=== PATIENT | male | born 1960 | race Caucasian/White ===

== ENCOUNTER → 2021-11-03 | Outpatient (CLI) | payer OTHER | LOC: LAB SHORT 16:34 | DX: R30.0 Dysuria (principal) | CPT/HCPCS: 87086 ==

== ENCOUNTER → 2022-04-01 | Outpatient (CLI) | payer BC, OTHER ==
[~2022-04-01] MED LIST: AMLO5 PO; ASPI81CH PO; ATOR40TA PO; CINNAMON PO; CIPR250 PO; GLIP5 PO; GLUCHON PO; LATA.005SO BOTHEYES; Lisinopril-Hct1 EAC4 PO; MAGNESIUM OXID500 MG PO; MELO7.5 PO; METF500 PO; MULTI-VITAMIN1 EAC2 PO; OMEGA-3 + VITA200 ML PO; Robaxin750 MG PO; TAMS.4ER PO; VITAMIN D310 MC4 PO; Vitamin B Comple1 EA PO; Voltaren100 GM TOP
[2022-04-01 12:53] LABS: BASOPHILS ABSOLUTE AUTO 0.02 K/mm3 (0.00-0.23); BASOPHILS PERCENT AUTO 1 % (0-2); EOSINOPHILS ABSOLUTE AUTO 0.16 K/mm3 (0.00-0.68); EOSINOPHILS PERCENT AUTO 4 % (0-6); Hematocrit 40.1 % (37.0-53.0); Hemoglobin 14.2 g/dL (13.5-17.5); IMMATURE GRAN ABSOLUTE AUTO 0.01 K/mm3 (0.00-0.10); IMMATURE GRAN PERCENT AUTO 0 % (0-1); LYMPHOCYTES ABSOLUTE AUTO 1.36 K/mm3 (0.84-5.20); LYMPHOCYTES PERCENT AUTO 31 % (21-46); MONOCYTES ABSOLUTE AUTO 0.41 K/mm3 (0.16-1.47); MONOCYTES PERCENT AUTO 9 % (4-13); Mean Corpuscular HGB 29.7 pg (26.0-34.0); Mean Corpuscular HGB Conc 35.4 g/dL (31.5-36.5); Mean Corpuscular Volume 84 fL (80-100); Mean Platelet Volume 10.4 fL (9.1-12.4); NEUTROPHILS ABSOLUTE AUTO 2.42 K/mm3 (1.96-9.15); NEUTROPHILS PERCENT AUTO 55 % (41-73); Platelet Count 219 K/mm3 (150-400); RDW Coefficient Variation 12.2 % (11.7-14.2); RDW Standard Deviation 37.2 fL (35.1-46.3); Red Blood Cell Count 4.78 M/mm3 (4.30-5.90); White Blood Cell Count 4.38 K/mm3 (4.00-11.30)
[2022-04-01 13:10] LABS: Alanine Aminotransfer (ALT/SGP 41 U/L (12-78); Albumin, Blood 3.8 g/dL (3.4-5.0); Albumin/Globulin Ratio 1.4 (0.8-1.8); Alk Phos 56 U/L (50-136); Anion Gap 6 mmol/L (6-16); Aspartate Aminotrans (AST/SGOT 18 U/L (12-37); Bilirubin, Total 0.4 mg/dL (0.1-1.0); Blood Urea Nitrogen 20 mg/dL (8-24); CO2, Blood 31 mmol/L (21-32); Calcium, Blood 9.5 mg/dL (8.5-10.1); Chloride, Blood 105 mmol/L (98-108); Creatinine, Blood 0.87 mg/dL (0.60-1.20); Globulin, Blood 2.8 g/dL (2.2-4.0); Glomerular Filtration Rate 97 (60-); Glucose, Blood 117 mg/dL (70-99); Magnesium, Blood 2.2 mg/dL (1.6-2.4); Potassium, Blood 3.4 mmol/L (3.5-5.5); Sodium, Blood 142 mmol/L (136-145); Total Protein, Blood 6.6 g/dL (6.4-8.2)
== END | disposition home or self-care (01) ==
LOC: LAB SHORT 12:15 → LAB 12:15
PROVIDERS: Nurse Practitioner Family
DX: R30.0 Dysuria (principal); R10.9 Unspecified abdominal pain; N34.1 Nonspecific urethritis
CPT/HCPCS: 80053; 83735; 84153; 85025; 87070; 87077; 87186; 87205; 87252; 87254

== ENCOUNTER → 2022-08-08 | Outpatient (CLI) | payer BC, OTHER ==
[2022-08-08 09:46] LABS: BASOPHILS ABSOLUTE AUTO 0.03 K/mm3 (0.00-0.23); BASOPHILS PERCENT AUTO 1 % (0-2); EOSINOPHILS ABSOLUTE AUTO 0.19 K/mm3 (0.00-0.68); EOSINOPHILS PERCENT AUTO 4 % (0-6); Hematocrit 40.2 % (37.0-53.0); Hemoglobin 13.7 g/dL (13.5-17.5); IMMATURE GRAN ABSOLUTE AUTO 0.01 K/mm3 (0.00-0.10); IMMATURE GRAN PERCENT AUTO 0 % (0-1); LYMPHOCYTES ABSOLUTE AUTO 1.07 K/mm3 (0.84-5.20); LYMPHOCYTES PERCENT AUTO 22 % (21-46); MONOCYTES ABSOLUTE AUTO 0.42 K/mm3 (0.16-1.47); MONOCYTES PERCENT AUTO 9 % (4-13); Mean Corpuscular HGB 29.2 pg (26.0-34.0); Mean Corpuscular HGB Conc 34.1 g/dL (31.5-36.5); Mean Corpuscular Volume 86 fL (80-100); Mean Platelet Volume 10.4 fL (9.1-12.4); NEUTROPHILS ABSOLUTE AUTO 3.06 K/mm3 (1.96-9.15); NEUTROPHILS PERCENT AUTO 64 % (41-73); Platelet Count 233 K/mm3 (150-400); RDW Coefficient Variation 13.5 % (11.7-14.2); RDW Standard Deviation 41.8 fL (35.1-46.3); Red Blood Cell Count 4.69 M/mm3 (4.30-5.90); White Blood Cell Count 4.78 K/mm3 (4.00-11.30)
[2022-08-08 10:06] LABS: Magnesium, Blood 2.1 mg/dL (1.6-2.4); Uric Acid, Blood 5.9 mg/dL (3.5-7.2)
[2022-08-08 10:07] LABS: Alanine Aminotransfer (ALT/SGP 27 U/L (12-78); Albumin, Blood 3.4 g/dL (3.4-5.0); Alk Phos 69 U/L (50-136); Anion Gap 5 mmol/L (6-16); Aspartate Aminotrans (AST/SGOT 14 U/L (12-37); Bilirubin, Total 0.3 mg/dL (0.1-1.0); Blood Urea Nitrogen 16 mg/dL (8-24); Bun/Creatinine Ratio 20.6 (12.0-20.0); CHOL/HDL RATIO 2.6; CO2, Blood 31 mmol/L (21-32); Calcium, Blood 8.8 mg/dL (8.5-10.1); Chloride, Blood 103 mmol/L (98-108); Cholesterol 140 mg/dL (50-200); Creatinine, Blood 0.78 mg/dL (0.60-1.20); Globulin, Blood 3.3 g/dL (2.2-4.0); Glomerular Filtration Rate 100 (60-); Glucose, Blood 159 mg/dL (70-99); HDL Cholesterol 54 mg/dL (>39); LDL/HDL RATIO 1.4; Low Density Lipoprotein Chol 73 mg/dL (0-110); Potassium, Blood 3.4 mmol/L (3.5-5.5); Sodium, Blood 139 mmol/L (136-145); Total Protein, Blood 6.7 g/dL (6.4-8.2); Triglycerides 63 mg/dL (30-160); Very Low Density Lipoprot Chol 12 mg/dL (6-32)
[2022-08-11 13:10] LABS: FREE TESTOSTERONE(DIRECT) 6.7 pg/mL (6.6-18.1); TESTOSTERONE, SERUM 339 ng/dL (264-916)
== END | disposition home or self-care (01) ==
LOC: LAB 08:45 → LAB SHORT 08:45
PROVIDERS: Nurse Practitioner Family
DX: Z00.00 Encounter for general adult medical examination without abnormal findings (principal); E78.5 Hyperlipidemia, unspecified; M1A.09X0 Idiopathic chronic gout, multiple sites, without tophus (tophi); E83.42 Hypomagnesemia; E11.9 Type 2 diabetes mellitus without complications
CPT/HCPCS: 80053; 80061; 82043; 83036; 83735; 84402; 84403; 84550; 85025

== ENCOUNTER → 2022-10-09 | Outpatient (CLI) | payer BC, OTHER ==
[~2022-10-09] MED LIST changes: +ZINC15 PO
== END ==
LOC: LAB SHORT 07:40
DX: E11.9 Type 2 diabetes mellitus without complications (principal)
CPT/HCPCS: 83036

== ENCOUNTER 2022-11-03 07:58 | Day surgery (SDC) | payer BC, OTHER ==
[2022-11-03] VITALS (13 sets, daily range): BP systolic 103–186; BP diastolic 55–162
[~2022-11-03] VITALS: Ht 171 cm; Wt 102.7 kg
--- NOTE | 2022-11-03 09:34 | NUR ---
Ambulatory in Day Surgery History, Chart, Medications and Allergies reviewed before start of procedure. Pre-Op teaching done. Pt verbalizes understanding.
--- NOTE | 2022-11-03 11:49 | NUR ---
PT GLASSES TAKEN TO PACU
--- NOTE | 2022-11-03 14:55 | NUR ---
ARRIVAL TO UNIT PT TRANSFERRED TO UNIT FROM PACU VIA HOSPITAL BED. S/P R TKA, POD 0. AOX4. REPORTS NO PAIN AT THIS TIME, PLAN IS TO MEDICATE PER EMAR. RECOVERING FROM SPINAL ANESTHESIA, UNABLE TO WIGGLE TOES, REPORTS NUMBNESS & TINGLING. PPP, CAP REFILL BRISK. TOLERATING PO INTAKE. AQUACEL DRESSING C/D/I W/ RAMAKRISHNA WRAP. COOLING DEVICE IN PLACE. BLADDER SCAN & STRAIGHT CATH PROCEDURE PERFORMED IN PACU, WILL CONTINUE TO MONITOR FOR POST-CATH VOID RECOVERY PROGRESSES. IVF ORDERED. @ BEDSIDE.
--- NOTE | 2022-11-03 17:27 | NUR ---
SHIFT SUMMARY S/P R TKA, POD 0. VSS, RM AIR. TOLERATING PO INTAKE. PAIN TOLERABLE W/ ORDERED MEDICATIONS. BLADDER SCAN & STRAIGHT CATH PERFORMED IN PACU, AWAITING POST-CATH VOID. AQUACEL DRESSING C/D/I W/ RAMAKRISHNA WRAP. PT EVAL COMPLETED, UP W/ SBA FWW GB. CURRENTLY SITTING IN CHAIR. @ BEDSIDE. WILL REPORT TO ONCOMING RN.
--- NOTE | 2022-11-03 18:12 | NUR ---
UPDATE AFTER ATTEMPTING TO VOID POST-OP, PT UNABLE TO DO SO. BLADDER SCAN & STRAIGHT CATH PERFORMED (SEE BLADDER MANAGEMENT CHARTING FOR [facility]).
[2022-11-04 00:25] VITALS: BP 136/80
[2022-11-04 04:32] LABS: BASOPHILS ABSOLUTE AUTO 0.01 K/mm3 (0.00-0.23); BASOPHILS PERCENT AUTO 0 % (0-2); EOSINOPHILS ABSOLUTE AUTO 0.04 K/mm3 (0.00-0.68); EOSINOPHILS PERCENT AUTO 1 % (0-6); Hematocrit 33.6 % (37.0-53.0); Hemoglobin 11.5 g/dL (13.5-17.5); IMMATURE GRAN ABSOLUTE AUTO 0.01 K/mm3 (0.00-0.10); IMMATURE GRAN PERCENT AUTO 0 % (0-1); LYMPHOCYTES PERCENT AUTO 6 % (21-46); MONOCYTES PERCENT AUTO 8 % (4-13); Mean Corpuscular HGB 30.2 pg (26.0-34.0); Mean Corpuscular HGB Conc 34.2 g/dL (31.5-36.5); Mean Corpuscular Volume 88 fL (80-100); Mean Platelet Volume 10.6 fL (9.1-12.4); NEUTROPHILS ABSOLUTE AUTO 6.87 K/mm3 (1.96-9.15); NEUTROPHILS PERCENT AUTO 86 % (41-73); Platelet Count 164 K/mm3 (150-400); RDW Coefficient Variation 13.3 % (11.7-14.2); RDW Standard Deviation 43.4 fL (35.1-46.3); Red Blood Cell Count 3.81 M/mm3 (4.30-5.90); White Blood Cell Count 8.03 K/mm3 (4.00-11.30)
[2022-11-04 04:43] VITALS: BP 129/75
[2022-11-04 04:54] LABS: Bun/Creatinine Ratio 27.5 (12.0-20.0); Calcium, Blood 8.7 mg/dL (8.5-10.1); Creatinine, Blood 0.66 mg/dL (0.60-1.20); Potassium, Blood 3.3 mmol/L (3.5-5.5)
--- NOTE | 2022-11-04 05:40 | NUR ---
SHIFT SUMMARY: PODx1 R TKA. X1 AQUACEL IN PLACE ON RIGHT KNEE WITH RAMAKRISHNA WRAP. C/D/I AT THIS TIME AND HAS REMAINED UNCHANGED SINCE THE START OF SHIFT. PAIN HAS BEEN WELL MANAGED WITH PO ROXICODONE. PT REPORTED INADEQUATE EMPTYING ON OCCASSION. BLADDER SCAN WAS PERFORMED TWICE DURING THE SHIFT IN WHICH THE PT WAS ABLE TO VOID AFTER THE SCAN. PT DENIED ANY PAIN OR DISCOMFORT WITH URINATION. DENIED ANY PAIN WHEN URINATING. FLOMAX GIVEN THIS AM. PT REPORTS AT BASELINE THERE IS SOME DIFFICULTY URINATING. PLANS TO POTENTIALLY DC HOME TODAY PER PROVIDER DECISION. PT IN RECLINER WITH CALL LIGHT IN REACH. WILL GIVE REPORT TO DAY TIME RN.
[2022-11-04 07:05] VITALS: BP 118/74
[2022-11-04] MEDS ORDERED: Percocet 5-3251 EACH PO ×2 (09:38)
--- NOTE | 2022-11-04 10:30 | NUR ---
DISCHARGE EDUCATION DISCUSSED INSTRUCTIONS & MEDICATIONS. HAS CLEARED THERAPY. PAIN WELL CONTROLLED. EATING, DRINKING, & VOIDING WELL. DRSGS & SCRIPT PACKED. WAITING FOR RIDE TO ARRIVE.
--- NOTE | 2022-11-04 11:29 | NUR ---
DISCHARGE RIDE ARRIVED. BELONGINGS & CRYOTHERAPY PACKED. ESCORTED OUT VIA WC.
== END 2022-11-04 11:25 | disposition home or self-care (01) ==
LOC: ORSCMMR 07:58 → SURS 14:25 → ORSCMMR 15:43 → SURS 15:43 → ORSCMMR 11-04 11:25
PROVIDERS: Orthopaedic Surgery
PROC: 0SRC0JA Replacement of Right Knee Joint with Synthetic Substitute, Uncemented, Open Approach (ICD-10-PCS; principal; 2022-11-03 11:30)
DX: M17.11 Unilateral primary osteoarthritis, right knee (principal); I10 Essential (primary) hypertension; G47.33 Obstructive sleep apnea (adult) (pediatric); E11.9 Type 2 diabetes mellitus without complications; E66.9 Obesity, unspecified; Z68.35 Body mass index [BMI] 35.0-35.9, adult; Z79.84 Long term (current) use of oral hypoglycemic drugs; Z79.899 Other long term (current) drug therapy
CPT/HCPCS: 36415; 73560-RT; 80048; 82947; 85025; 94762; 97110; 97116; 97162; A9270; C1776; J0171; J0690; J0735; J1170; J1885; J2250; J2704; J2795; J3010; J7120

== ENCOUNTER → 2022-11-06 | Outpatient (CLI) | payer BC, OTHER ==
[~2022-11-06] MED LIST changes: +Percocet 5-3251 EACH PO
== END ==
LOC: LAB SHORT 12:00
DX: R30.0 Dysuria (principal)
CPT/HCPCS: 87086